=== PATIENT | female | born 1995 | race Caucasian/White ===

== ENCOUNTER → 2020-04-07 | Outpatient (CLI) | payer BC ==
--- NOTE | 2020-04-07 15:04 | US ---
EXAMINATION TYPE: US pelvis complete transvag DATE OF EXAM: 04/07/2020 COMPARISON: NONE CLINICAL HISTORY: N93.9 Abnormal uterine bleeding. Medical induced x 1 month ago and still b leeding. TECHNIQUE: Transvaginal (TV) and Transabdominal (TA) . Transabdominal sonographic images of the pel vis were acquired. Transvaginal sonographic images were medically necessary to better assess the fol lowing anatomy: Endometrium Date of LMP: 02/24/2020, [id number] EXAM MEASUREMENTS: Uterus: 7.4 x 4.8 x 3.6 cm Endometrial Stripe: 0.7 cm Right Ovary: 3.3 x 2.4 x 1.7 cm 1. Uterus: Anteverted wnl 2. Endometrium: Appears hypervascular and slightly heterogenous. No prominent masses or lesions see n. 3. Right Ovary: wnl 4. Left Ovary: Obscured by overlying bowel gas 5. Bilateral Adnexa: wnl 6. Posterior cul-de-sac: free fluid visualized. As abdominal and transpelvic ultrasound showed no suspicious endometrial thickening but there is susp icious significant turbulent vascularity that extends from the endometrium into the adjacent myometri um. This is observed on both transvaginal and transabdominal imaging. Tiny amount of free fluid in pe lvic cul-de-sac towards end of study. Left ovary not clearly seen. Right ovary identified. No suspicious adnexal masses. IMPRESSION: As above. Consider acquired uterine AVM given patient's history. Advise endovascular inte rventional referral to further investigate with direct catheter angiogram and possibly treat. Ordering physician made aware of results shortly after exam was completed and reviewed with radiologi st by glass technologist.
== END | disposition home or self-care (01) ==
LOC: RADUSWWP 14:19
PROVIDERS: ATTEND Family Medicine
DX: N83.8 Other noninflammatory disorders of ovary, fallopian tube and broad ligament (principal); R93.89 Abnormal findings on diagnostic imaging of other specified body structures
CPT/HCPCS: 76830; 76856

== ENCOUNTER → 2020-04-17 | Outpatient (CLI) | payer BC | END | disposition home or self-care (01) | LOC: LABWHC1 08:12 | PROVIDERS: ATTEND Obstetrics & Gynecology | DX: N92.6 Irregular menstruation, unspecified (principal) | CPT/HCPCS: 36415; 84702 ==

== ENCOUNTER → 2020-05-01 | Outpatient (CLI) | payer BC | END | disposition home or self-care (01) | LOC: LABWHC1 07:49 | PROVIDERS: ATTEND Obstetrics & Gynecology | DX: O03.4 Incomplete spontaneous abortion without complication (principal); Z3A.00 Weeks of gestation of pregnancy not specified | CPT/HCPCS: 36415; 84702 ==

== ENCOUNTER 2021-03-12 16:58 | Emergency (ER) | payer BC ==
[2021-03-12 17:19] VITALS: TEMP 98.6
[2021-03-12] MEDS ORDERED: SODIUM CHLORIDE 0.9% 1,000 ML IV STA (17:33)
[2021-03-12] MEDS ORDERED: diphenhydrAMINE 50 MG/ML 1 ML VIAL IVP STA (17:35)
[2021-03-12] MEDS ORDERED: BENZTROPINE 2 MG/2 ML AMP IV STA (17:35)
--- NOTE | 2021-03-12 17:45 | ED ---
General Adult HPI - General Chief complaint: Recheck/Abnormal Lab/Rx Stated complaint: ticks Time Seen by Provider: 03/12/21 17:20 Source: patient, family, RN notes reviewed Mode of arrival: ambulatory Limitations: no limitations - History of Present Illness Initial comments: This is a pleasant 26-year-old female with history depression. Patient had her Lexapro increased from 20 mg to 30 mg on Monday. Patient subsequently developed a tremor and upper body spasm involving her neck and torso. Patient was seen at [facility] yesterday. Patient was given Benadryl and sent home. Patient subsequently had another visit and was given Cogentin. Patient saw her primary care physician today and it was deemed that the reaction may be related to an [id number] energy supplements with coenzyme Q 10 that she started on Monday. Later [facility] did stop her Lexapro, she's only been off this for one day however. She is denying any other illicit substances. No other new medications. No antipsychotics. No nausea medicines. Patient was also diagnosed with a urinary tract infection this morning at her doctor's office and was started on nitrofurantoin. However, patient has had no symptomology regarding avoiding irritation. No fever. No headache, no fever or chills, no changes in vision or hearing, no sore throat or difficulty with speech, no neck pain, no chest pain or shortness of breath, no abdominal pain, no nausea or vomiting, no changes in urination or bowel movements, no numbness or tingling, no extremity pain, no skin rashes or lesions. - Related Data Home Medications Medication Instructions Recorded Confirmed Baclofen [Lioresal] 10 mg PO TID 03/12/21 03/12/21 Escitalopram [Lexapro] 10 mg PO BID 03/12/21 03/12/21 Nitrofurantoin Monohyd/M-Cryst 100 mg PO Q12HR 03/12/21 03/12/21 [Macrobid] norgestimate-ethinyl estradioL 1 tab PO DAILY@199903/12/21 03/12/21 [Nymyo 0.25-0.035 mg (28) Tab] Previous Rx's Medication Instructions Recorded LORazepam [Ativan] 0.5 mg PO TID 3 Days #9 tab 03/12/21 Allergies Allergy/AdvReac Type Severity Reaction Status Date / Time shellfish derived [Shellfish] Allergy Rash/Hives Verified 03/12/21 18:28 Review of Systems ROS Statement: Those systems with pertinent positive or pertinent negative responses have been documented in the HPI. ROS Other: All systems not noted in ROS Statement are negative. Past Medical History Additional Past Medical History / Comment(s): covid x 2 History of Any Multi-Drug Resistant Organisms: None Reported Additional Past Surgical History / Comment(s): d&c Past Psychological History: Anxiety, Depression Smoking Status: Current every day smoker, Vaper Past Alcohol Use History: Rare Past Drug Use History: None Reported General Exam Limitations: no limitations General appearance: alert, in no apparent distress Head exam: Present: atraumatic, normocephalic, normal inspection Eye exam: Present: normal appearance, PERRL, EOMI. Absent: scleral icterus, conjunctival injection, periorbital swelling ENT exam: Present: normal exam, mucous membranes moist Neck exam: Present: normal inspection. Absent: tenderness, meningismus, lymphadenopathy Respiratory exam: Present: normal lung sounds bilaterally. Absent: respiratory distress, wheezes, rales, rhonchi, stridor Cardiovascular Exam: Present: regular rate, normal rhythm, normal heart sounds. Absent: systolic murmur, diastolic murmur, rubs, gallop, clicks GI/Abdominal exam: Present: soft, normal bowel sounds. Absent: distended, tenderness, guarding, rebound, rigid Extremities exam: Present: normal inspection, full ROM, normal capillary refill. Absent: tenderness, pedal edema, joint swelling, calf tenderness Back exam: Present: normal inspection Neurological exam: Present: alert, altered, oriented X3, CN II-XII intact, other (Patient has obvious spasmodic activity affecting her torso and neck area. This is consistent throughout the course of interview. Coming every few seconds. Neurologically intact otherwise.). Absent: normal gait, abnormal gait, motor sensory deficit, reflexes normal Psychiatric exam: Present: normal affect, normal mood Skin exam: Present: warm, dry, intact, normal color. Absent: rash Course Vital Signs 03/12/21 03/12/21 17:11 19:29 Temperature 98.6 F Pulse Rate 95 73 Respiratory 20 18 Rate Blood Pressure 110/75 110/82 O2 Sat by Pulse 99 99 Oximetry Medical Decision Making - Medical Decision Making Patient presents with myoclonic jerking involving the upper torso. Patient neurologically intact otherwise. No focal neurologic deficits.Patient remained lucid, alert and oriented 4 throughout the entire course of these movements. Patient has been seen at the other emergency department here in [facility]. Patient was also seen by her primary care physician this morning. Patient was started on baclofen. Patient was seen and assessed both by myself as well as the ED attending physician here today. We're going to treat the patient with a short course of Ativan 0.5 mg 3 times a day. Patient will be followed up with neurology. Patient given follow-up information for Dr. Jacques. Patient was told to return to the ER for any signs or symptoms worsen. Told to return immediately if any other problems arise. All questions answered. Treatment plan discussed. Patient in agreement ED attending physicians Dr. Stanton - Lab Data Result diagrams: 03/12/21 17:53 03/12/21 17:53 Lab Results 03/12/21 03/12/21 03/12/21 Range/Units 17:53 17:53 Unknown WBC 7.7 (3.8-10.6) k/uL RBC 4.67 (3.80-5.40) m/uL Hgb 13.9 (11.4-16.0) gm/dL Hct 42.3 (34.0-46.0) % MCV 90.5 (80.0-100.0) fL MCH 29.7 (25.0-35.0) pg MCHC 32.8 (31.0-37.0) g/dL RDW 12.8 (11.5-15.5) % Plt Count 214 (150-450) k/uL MPV 7.3 Neutrophils % 71 % Lymphocytes % 23 % Monocytes % 3 % Eosinophils % 2 % Basophils % 0 % Neutrophils # 5.4 (1.3-7.7) k/uL Lymphocytes # 1.8 (1.0-4.8) k/uL Monocytes # 0.3 (0-1.0) k/uL Eosinophils # 0.1 (0-0.7) k/uL Basophils # 0.0 (0-0.2) k/uL Sodium 137 (137-145) mmol/L Potassium 4.4 (3.5-5.1) mmol/L Chloride 108 H (98-107) mmol/L Carbon Dioxide 20 L (22-30) mmol/L Anion Gap 9 mmol/L BUN 10 (7-17) mg/dL Creatinine 0.79 (0.52-1.04) mg/dL Est GFR (CKD-EPI)AfAm >90 (>60 ml/min/1.73 sqM) Est GFR (CKD-EPI)NonAf >90 (>60 ml/min/1.73 sqM) Glucose 121 H (74-99) mg/dL Calcium 9.6 (8.4-10.2) mg/dL Total Bilirubin 1.3 (0.2-1.3) mg/dL AST 39 H (14-36) U/L ALT 29 (4-34) U/L Alkaline Phosphatase 34 L (38-126) U/L Total Protein 8.1 (6.3-8.2) g/dL Albumin 4.6 (3.5-5.0) g/dL Urine Color Yellow Urine Appearance Clear (Clear) Urine pH 5.0 (5.0-8.0) Ur Specific [place] 1.010 (1.001-1.035) Urine Protein Negative (Negative) Urine Glucose (UA) Negative (Negative) Urine Ketones Negative (Negative) Urine Blood Negative (Negative) Urine Nitrite Negative (Negative) Urine Bilirubin Negative (Negative) Urine Urobilinogen <2.0 (<2.0) mg/dL Ur Leukocyte Esterase Negative (Negative) Urine HCG, Qual (Not Detectd) Urine Opiates Screen (NotDetected) Ur Oxycodone Screen (NotDetected) Urine Methadone Screen (NotDetected) Ur Propoxyphene Screen (NotDetected) Ur Barbiturates Screen (NotDetected) U Tricyclic Antidepress (NotDetected) Ur Phencyclidine Scrn (NotDetected) Ur Amphetamines Screen (NotDetected) U Methamphetamines Scrn (NotDetected) U Benzodiazepines Scrn (NotDetected) Urine Cocaine Screen (NotDetected) U Marijuana (THC) Screen (NotDetected) 03/12/21 03/12/21 Range/Units Unknown Unknown WBC (3.8-10.6) k/uL RBC (3.80-5.40) m/uL Hgb (11.4-16.0) gm/dL Hct (34.0-46.0) % MCV (80.0-100.0) fL MCH (25.0-35.0) pg MCHC (31.0-37.0) g/dL RDW (11.5-15.5) % Plt Count (150-450) k/uL MPV Neutrophils % % Lymphocytes % % Monocytes % % Eosinophils % % Basophils % % Neutrophils # (1.3-7.7) k/uL Lymphocytes # (1.0-4.8) k/uL Monocytes # (0-1.0) k/uL Eosinophils # (0-0.7) k/uL Basophils # (0-0.2) k/uL Sodium (137-145) mmol/L Potassium (3.5-5.1) mmol/L Chloride (98-107) mmol/L Carbon Dioxide (22-30) mmol/L Anion Gap mmol/L BUN (7-17) mg/dL Creatinine (0.52-1.04) mg/dL Est GFR (CKD-EPI)AfAm (>60 ml/min/1.73 sqM) Est GFR (CKD-EPI)NonAf (>60 ml/min/1.73 sqM) Glucose (74-99) mg/dL Calcium (8.4-10.2) mg/dL Total Bilirubin (0.2-1.3) mg/dL AST (14-36) U/L ALT (4-34) U/L Alkaline Phosphatase (38-126) U/L Total Protein (6.3-8.2) g/dL Albumin (3.5-5.0) g/dL Urine Color Urine Appearance (Clear) Urine pH (5.0-8.0) Ur Specific [place] (1.001-1.035) Urine Protein (Negative) Urine Glucose (UA) (Negative) Urine Ketones (Negative) Urine Blood (Negative) Urine Nitrite (Negative) Urine Bilirubin (Negative) Urine Urobilinogen (<2.0) mg/dL Ur Leukocyte Esterase (Negative) Urine HCG, Qual Not Detected (Not Detectd) Urine Opiates Screen Not Detected (NotDetected) Ur Oxycodone Screen Not Detected (NotDetected) Urine Methadone Screen Not Detected (NotDetected) Ur Propoxyphene Screen Not Detected (NotDetected) Ur Barbiturates Screen Not Detected (NotDetected) U Tricyclic Antidepress Not Detected (NotDetected) Ur Phencyclidine Scrn Not Detected (NotDetected) Ur Amphetamines Screen Not Detected (NotDetected) U Methamphetamines Scrn Not Detected (NotDetected) U Benzodiazepines Scrn Not Detected (NotDetected) Urine Cocaine Screen Not Detected (NotDetected) U Marijuana (THC) Screen Not Detected (NotDetected) Disposition Clinical Impression: Myoclonic jerking, Encounter for medication refill, Stress and adjustment reaction Disposition: HOME SELF-CARE Condition: Good Prescriptions: LORazepam [Ativan] 0.5 mg PO TID 3 Days #9 tab Is patient prescribed a controlled substance at d/c from ED?: No Referrals: Colton Bustillos MD [Primary Care Provider] - 1-2 days Dilshad Jacques DO [STAFF PHYSICIAN] - 1-2 days Time of Disposition: 19:36
[2021-03-12 17:55] LABS: Basophils % (A) 0 %; Eosinophils # (A) 0.1 k/uL (0-0.7); Eosinophils % (A) 2 %; HCT 42.3 % (34.0-46.0); HGB 13.9 gm/dL (11.4-16.0); Lymphocytes # (A) 1.8 k/uL (1.0-4.8); Lymphocytes % (A) 23 %; MCH 29.7 pg (25.0-35.0); MCHC 32.8 g/dL (31.0-37.0); MCV 90.5 fL (80.0-100.0); Mean Platelet Volume 7.3; Monocytes # (A) 0.3 k/uL (0-1.0); Monocytes % (A) 3 %; Neutrophils # (A) 5.4 k/uL (1.3-7.7); Neutrophils % (A) 71 %; Platelet Count 214 k/uL (150-450); RBC 4.67 m/uL (3.80-5.40); RDW 12.8 % (11.5-15.5); WBC 7.7 k/uL (3.8-10.6)
[2021-03-12 18:05] LABS: Appearance,Urine Clear (Clear); Bilirubin,Urine Negative (Negative); Blood,Urine Negative (Negative); Color,Urine Yellow; Glucose,Urine (UA) Negative (Negative); Ketones,Urine Negative (Negative); Leukocyte Esterase,Urine Negative (Negative); Nitrite,Urine Negative (Negative); Protein,Urine Negative (Negative); Urobilinogen,Urine <2.0 mg/dL (<2.0)
[2021-03-12 18:11] LABS: ALT 29 U/L (4-34); AST 39 U/L (14-36); African American GFR (CKD) >90 (>60 ml/min/1.73 sqM); Albumin 4.6 g/dL (3.5-5.0); Alkaline Phosphatase 34 U/L (38-126); Anion Gap 9 mmol/L; Blood Urea Nitrogen 10 mg/dL (7-17); Calcium 9.6 mg/dL (8.4-10.2); Carbon Dioxide 20 mmol/L (22-30); Chloride 108 mmol/L (98-107); Glucose 121 mg/dL (74-99); Non-African American GFR(CKD) >90 (>60 ml/min/1.73 sqM); Sodium 137 mmol/L (137-145); Total Bilirubin 1.3 mg/dL (0.2-1.3); Total Protein 8.1 g/dL (6.3-8.2)
[2021-03-12 18:15] LABS: Amphetamine Screen,Urine Not Detected (NotDetected); Barbiturate Screen,Urine Not Detected (NotDetected); Benzodiazepines Screen,Urine Not Detected (NotDetected); Cocaine Screen,Urine Not Detected (NotDetected); Methadone Screen, Urine Not Detected (NotDetected); Opiate Screen,Urine Not Detected (NotDetected); Oxycodone Screen, Urine Not Detected (NotDetected); Phencyclidine Screen,Urine Not Detected (NotDetected); Tricyclic Antidepressant,Urine Not Detected (NotDetected); Urn Cannabinoid Scrn Not Detected (NotDetected)
[2021-03-12 18:29] LABS: Potassium 4.4 mmol/L (3.5-5.1)
[2021-03-12] MEDS ORDERED: LORazepam 2 MG/ML INJ IV STA (19:05)
[2021-03-12 19:31] VITALS: BP 110/82; PULSE 73; RESP 18
== END 2021-03-12 20:10 | disposition home or self-care (01) ==
LOC: EC 16:58
DX: G25.3 Myoclonus (principal); F43.20 Adjustment disorder, unspecified; F17.290 Nicotine dependence, other tobacco product, uncomplicated; Z76.0 Encounter for issue of repeat prescription; Z20.822 Contact with and (suspected) exposure to COVID-19; Z86.16 Personal history of COVID-19; Z91.013 Allergy to seafood
CPT/HCPCS: 36415; 80053; 85025; 81003; 81025; 80306; 99284; 96374; 96375; 96361; J2060; J1200; J0515

== ENCOUNTER → 2021-06-30 | Outpatient (CLI) | payer BC ==
--- NOTE | 2021-06-30 15:11 | US ---
EXAMINATION TYPE: US pelvis complete transvag DATE OF EXAM: 06/30/2021 COMPARISON: US CLINICAL HISTORY: R10.2 PELVIC PAIN. Pelvic pain. Hx of D&C. . TECHNIQUE: Transabdominal (TA). Transabdominal sonographic images of the pelvis were acquired. Tra nsvaginal sonographic images were medically necessary to better assess the following anatomy: Left ov mary Date of LMP: 06/23/21 EXAM MEASUREMENTS: Uterus: 7.3 x 3.5 x 3.0 cm Endometrial Stripe: 0.63 cm Right Ovary: 2.3 x 1.4 x 1.5 cm Left Ovary: Not visualized 1. Uterus: Anteverted Cervix appears heterogeneous. Distinct mass not visualized after transvagina l imaging. 2. Endometrium: Measures 0.63 cm. Hyperechoic area seen in upper endo measuring 0.2 x 0.2 x 0.1 cm. Hypervascular area seen in endometrium and extending into the myometrium. 3. Right Ovary: Seen TA only. No abnormalities seen. 4. Left Ovary: Obscured by overlying bowel gas 5. Bilateral Adnexa: wnl 6. Posterior cul-de-sac: wnl IMPRESSION: 1. Some prominence of uterine cervix. Correlate with physical exam. Follow-up exam can be performed a s clinically warranted.
== END | disposition home or self-care (01) ==
LOC: RADUSWWP 12:56
PROVIDERS: ATTEND Obstetrics & Gynecology
DX: R10.2 Pelvic and perineal pain (principal)
CPT/HCPCS: 76830; 76856

== ENCOUNTER 2023-09-25 19:33 | Inpatient (IN) | payer BC | END 2023-09-26 12:01 | disposition home or self-care (01) | DRG 807 | LOC: 4FBP 19:33 | PROVIDERS: ADMIT Obstetrics & Gynecology; ATTEND Obstetrics & Gynecology | PROC: 10E0XZZ Delivery of Products of Conception, External Approach (ICD-10-PCS; principal; 2023-09-25) | PROC: 0KQM0ZZ Repair Perineum Muscle, Open Approach (ICD-10-PCS; 2023-09-25) | DX: O42.02 Full-term premature rupture of membranes, onset of labor within 24 hours of rupture (principal); Z37.0 Single live birth; O70.1 Second degree perineal laceration during delivery; Z3A.37 37 weeks gestation of pregnancy ==

== ENCOUNTER → 2024-02-08 | Outpatient (CLI) | payer BC ==
--- NOTE | 2024-02-09 16:41 | US ---
EXAMINATION TYPE: US gallbladder DATE OF EXAM: 02/08/2024 COMPARISON: NONE CLINICAL INDICATION: Female, 29 years old with history of R10.11 RIGHT UPPER QUADRANT PAIN; RUQ pain TECHNIQUE: Grayscale and color Doppler imaging of the right upper quadrant was performed. FINDINGS: EXAM MEASUREMENTS: Liver Length: 11.9x4.0x5.4 cm Gallbladder Wall: 0.2 cm CBD: 0.4 cm Right Kidney: 11.9x4.0x5.4 cm INTERMEDIATE MANAGER NOTES: Pancreas: Tail obscured by overlying bowel gas Liver: wnl Gallbladder: large stone measuring up to 2.7 cm Evidence for sonographic Fuentes's sign: No CBD: wnl Right Kidney: wnl exam limited by bowel gas IMPRESSION: 1. Cholelithiasis. 2. No evidence for acute process. [facility], , 02/09/2024 4:39 PM
== END | disposition home or self-care (01) ==
LOC: RADUSWWP 07:00
PROVIDERS: ATTEND Family Medicine
DX: K80.20 Calculus of gallbladder without cholecystitis without obstruction (principal)
CPT/HCPCS: 76705

== ENCOUNTER → 2024-08-05 | Outpatient (CLI) | payer OTHER ==
--- NOTE | 2024-08-05 23:14 | US ---
EXAMINATION TYPE: Transabdominal DATE OF EXAM: 08/05/2024 1:35 PM COMPARISON: None relevant CLINICAL INDICATION: Female, 29 years old with history of O36.80X0 W INCONCLUSIVE VIA BILITY,; Unknown LMP, 10 month old - not . Positive test TECHNIQUE: Transabdominal (TA) with grayscale and color Doppler imaging including first trimester pre gnancy. FINDINGS: EXAM MEASUREMENTS: GESTATIONAL AGE / DATING Physician Established: Not yet established Dates by LMP: LMP unknown Dates by First Scan: No previous this is first scan Dates by Current Scan for: (9 weeks/4 days) EDC: 03/06/2025 MATERNAL ANATOMY Uterus: 11.1 x 6.2 x 7.3 cm Right Ovary: 3.9 x 2.2 x 2.7 cm Left Ovary: 3.3 x 1.8 x 2.1 cm Post CDS / Adnexa: WNL Presence of free fluid: No Presence of corpus luteal cyst: No Presence of subchorionic bleed: Yes, 1.3 x 0.5 cm GESTATION / SURVEY CRL: 2.65 (9 weeks/4 days) Gestational Sac morphology: Normal Gestational Sac MSD: NA ( weeks/ days) Yolk Sac (normal less than 6mm): 3 mm Cardiac Activity/Heart Rate: 167 bpm Rhythm: Normal IUP: Viable IUP Nuchal Translucency 10-14wks (normal less than 3mm): 1 mm Age Appropriate Anatomy Cord Insertion: Too early to visualize Limbs: Visualized Calvarium: Visualized Date of LMP: Unknown Beta HcG (if available): Not available IMPRESSION: 1. Single intrauterine gestation estimated at 9 weeks 4 days gestation based on crown-rump length. Ca rdiac activity measures 167 bpm. 2. There may be a small subchorionic hemorrhage adjacent to the gestational sac. Follow up can be per formed. [facility], , 08/05/2024 11:12 PM
== END | disposition home or self-care (01) ==
LOC: RADUSWWP 13:17
PROVIDERS: ATTEND Obstetrics & Gynecology
DX: O36.80X0 Pregnancy with inconclusive fetal viability, not applicable or unspecified (principal); Z3A.09 9 weeks gestation of pregnancy
CPT/HCPCS: 76801

== ENCOUNTER 2024-08-21 08:44 | Emergency (ER) | payer OTHER ==
[2024-08-21 08:49] VITALS: RESP 20; TEMP 98.6
--- NOTE | 2024-08-21 09:08 | ED ---
General Adult HPI - General Chief complaint: Neuro Symptoms/Deficit Stated complaint: Possible seizure Time Seen by Provider: 08/21/24 08:56 Source: patient Mode of arrival: ambulatory Limitations: no limitations - History of Present Illness Initial comments: Dictation was produced using [employer] dictation software. please excuse any grammatical, word or spelling errors. Chief Complaint: 29-year-old female with dystonia History of Present Illness: Patient 29-year-old female takes antidepressant medications. She is allegedly 3 months . Patient was driving when all of a sudden she started to have dystonic reactions. She had a similar episode years ago after having had some of her antidepressant medications changed. Patient's been on antidepressant medications for the last 6 to 7 years. Denies any pain complaints. States that her arms do not feel too bad. The ROS documented in this emergency department record has been reviewed and confirmed by me. Those systems with pertinent positive or negative responses have been documented in the HPI. All other systems are other negative and/or noncontributory. - Related Data Home Medications Medication Instructions Recorded Confirmed Baclofen [Lioresal] 10 mg PO TID 03/12/21 03/12/21 Escitalopram [Lexapro] 10 mg PO BID 03/12/21 03/12/21 Nitrofurantoin Monohyd/M-Cryst 100 mg PO Q12HR 03/12/21 03/12/21 [Macrobid] norgestimate-ethinyl estradioL 1 tab PO DAILY@199903/12/21 03/12/21 [Nymyo 0.25-0.035 mg (28) Tab] Previous Rx's Medication Instructions Recorded LORazepam [Ativan] 0.5 mg PO TID 3 Days #9 tab 03/12/21 Allergies Allergy/AdvReac Type Severity Reaction Status Date / Time shellfish derived [Shellfish] Allergy Rash/Hives Verified 03/12/21 18:28 Review of Systems ROS Statement: Those systems with pertinent positive or pertinent negative responses have been documented in the HPI. ROS Other: All systems not noted in ROS Statement are negative. Past Medical History Additional Past Medical History / Comment(s): covid x 2 ,serotonin issues History of Any Multi-Drug Resistant Organisms: None Reported Additional Past Surgical History / Comment(s): d&c Past Psychological History: Anxiety, Depression Smoking Status: Current every day smoker, Vaper Past Alcohol Use History: Rare Past Drug Use History: None Reported General Exam - General Exam Comments Initial Comments: PHYSICAL EXAM: General Impression: Alert and oriented x3, uncontrolled neck face and head movements HEENT: Normocephalic atraumatic, extra-ocular movements intact, pupils equal and reactive to light bilaterally, mucous membranes moist. Cardiovascular: Heart regular rate and rhythm Chest: Able to complete full sentences, no retractions, no tachypnea Abdomen: abdomen soft, non-tender, non-distended, no organomegaly Musculoskeletal: Pulses present and equal in all extremities, no peripheral edema Motor: no focal deficits noted Neurological: CN II-XII grossly intact, no focal motor or sensory deficits noted Skin: Intact with no visualized rashes Psych: Normal affect and mood Limitations: no limitations Course Vital Signs 08/21/24 08:45 Temperature 98.6 F Pulse Rate 100 Respiratory 20 Rate Blood Pressure 123/84 O2 Sat by Pulse 97 Oximetry Medical Decision Making - Medical Decision Making Was pt. sent in by a medical professional or institution (, PA, ENGINE BUILDUP MECHANIC, urgent care, hospital, or [facility]...) When possible be specific @ -No Did you speak to anyone other than the patient for history (EMS, parent, family, police, friend...)? What history was obtained from this source @ -No Did you review nursing and triage notes (agree or disagree)? Why? @ -I reviewed and agree with nursing and triage notes Were old charts reviewed (outside hosp., previous admission, EMS record, old EKG, old radiological studies, urgent care reports/EKG's, [facility] records)? Report findings @ -No old charts were reviewed Differential Diagnosis (chest pain, altered mental status, abdominal pain women, abdominal pain men, vaginal bleeding, musculoskeletal, weakness, fever, dyspne a, syncope, headache, dizziness, GI bleed, back pain, seizure, CVA, palpatations, mental health)? @ -Differential Musculoskeletal: Muscular strain, contusion, ligament sprain, fracture, arthritis, septic arthritis, bursitis, cellulitis, muscle spasm, nerve compression, DVT, arterial occlusion, herpes zoster, electrolyte abnormality, tumor.... This is not meant to be in all inclusive list EKG interpreted by me (3pts min.). @ -None done X-rays interpreted by me (1pt min.). @ -None done CT interpreted by me (1pt min.). @ -None done U/S interpreted by me (1pt. min.). @ -None done What testing was considered but not performed or refused? (CT, X-rays, U/S, labs)? Why? @ -None What meds were considered but not given or refused? Why? @ -None Was smoking cessation discussed for >3mins.? @ -No Were there social determinants of health that impacted care today? How? (Homelessness, low income, unemployed, alcoholism, drug addiction, transportation, low edu. Level, literacy, decrease access to med. care, detention, rehab)? @ -No Was there de-escalation of care discussed even if they declined (Discuss DNR or withdrawal of care, Hospice)? DNR status @ -No What co-morbidities impacted this encounter? (DM, HTN, Smoking, COPD, CAD, Cancer, CVA, ARF, Chemo, Hep., AIDS, mental health diagnosis, sleep apnea, morbid obesity)? @ -Depression Was patient admitted / discharged? Hospital course, mention meds given and route, prescriptions, significant lab abnormalities, going to OR and other pert inent info. @ -29-year-old female presents to the emergency department acute dystonic reaction. Vital signs stable. Laboratory evaluation is unremarkable. Patient symptoms resolved after benztropine. Discharged told to follow-up with whoever prescribes her psychiatric medications for further care. Did you discuss the management of the patient with other professionals (professionals i.e. , PA, ENGINE BUILDUP MECHANIC, lab, RT, psych nurse, geriatric social work professor, pediatric physical therapist, teacher, police liaison officer, renal case manager)? Give summary @ -No Was critical care preformed (if so, how long)? @ -No Undiagnosed new problem with uncertain prognosis? @ -No Drug Therapy requiring intensive monitoring for toxicity (Heparin, Nitro, In sulin, Cardizem)? @ -No Were any procedures done? @ -No Diagnosis/symptom? Acute, or Chronic, or Acute on Chronic? Uncomplicated (without systemic symptoms) or Complicated (systemic symptoms)? @ -Acute dystonia Side effects of treatment? @ -No Exacerbation, Progression, or Severe Exacerbation? @ -No Poses a threat to life or bodily function? How? (Chest pain, [place], [place], pneumonia, PE, COPD, DKA, ARF, appy, cholecystitis, CVA, Diverticulitis, Homicidal, Suicidal, threat to staff... and all critical care pts) @ -No - Lab Data Result diagrams: 08/21/24 09:37 08/21/24 09:37 Lab Results 08/21/24 08/21/24 Range/Units 09:37 09:37 WBC 7.71 (4.50-10.00) 10*3/uL RBC 4.44 (4.10-5.20) 10*6/uL Hgb 13.0 (12.0-15.0) g/dL Hct 37.8 (37.2-46.3) % MCV 85.1 (80.0-97.0) fL MCH 29.3 (27.0-32.0) pg MCHC 34.4 (32.0-37.0) g/dL Plt Count 244 (140-440) 10*3/uL MPV 9.4 L (9.5-12.2) fL Immature Gran % (Auto) 0.3 % Neutrophils % 73.0 % Lymphocytes % 21.3 % Monocytes % 4.2 % Eosinophils % 0.8 % Basophils % 0.4 % Immature Gran # 0.02 (0.00-0.04) 10*3/uL Neutrophils # 5.64 (1.80-7.70) 10*3/uL Lymphocytes # 1.64 (0.90-5.00) 10*3/uL Monocytes # 0.32 (0.20-1.00) 10*3/uL Eosinophils # 0.06 (0.04-0.35) 10*3/uL Basophils # 0.03 (0.00-0.10) 10*3/uL Sodium 137 (137-145) mmol/L Potassium 3.8 (3.5-5.1) mmol/L Chloride 105 (98-107) mmol/L Carbon Dioxide 22 (22-30) mmol/L Anion Gap 10 mmol/L BUN 8 (7-17) mg/dL Creatinine 0.52 (0.52-1.04) mg/dL Est GFR (CKD-EPI)AfAm >90 (>60 ml/min/1.73 sqM) Est GFR (CKD-EPI)NonAf >90 (>60 ml/min/1.73 sqM) Glucose 91 (74-99) mg/dL Calcium 9.3 (8.4-10.2) mg/dL Disposition Clinical Impression: Acute dystonic reaction due to drugs Disposition: HOME SELF-CARE Condition: Fair Instructions (If sedation given, give patient instructions): Extrapyramidal Symptoms (ED) Is patient prescribed a controlled substance at d/c from ED?: No Referrals: Nonstaff,Physician [Primary Care Provider] - 1-2 days Time of Disposition: 10:30
[2024-08-21] MEDS: BENZTROPINE 2 MG/2 ML AMP IV STA (09:20)
[2024-08-21 09:50] LABS: Basophils # (A) 0.03 10*3/uL (0.00-0.10); Basophils % (A) 0.4 %; Eosinophils # (A) 0.06 10*3/uL (0.04-0.35); Eosinophils % (A) 0.8 %; HCT 37.8 % (37.2-46.3); HGB 13.0 g/dL (12.0-15.0); Lymphocytes # (A) 1.64 10*3/uL (0.90-5.00); Lymphocytes % (A) 21.3 %; MCH 29.3 pg (27.0-32.0); MCHC 34.4 g/dL (32.0-37.0); MCV 85.1 fL (80.0-97.0); Monocytes # (A) 0.32 10*3/uL (0.20-1.00); Monocytes % (A) 4.2 %; Neutrophils # (A) 5.64 10*3/uL (1.80-7.70); Neutrophils % (A) 73.0 %; Platelet Count 244 10*3/uL (140-440); RBC 4.44 10*6/uL (4.10-5.20); RDW 13.6 % (11.5-14.5); WBC 7.71 10*3/uL (4.50-10.00)
[2024-08-21 10:00] LABS: African American GFR (CKD) >90 (>60 ml/min/1.73 sqM); Anion Gap 10 mmol/L; Blood Urea Nitrogen 8 mg/dL (7-17); Calcium 9.3 mg/dL (8.4-10.2); Carbon Dioxide 22 mmol/L (22-30); Chloride 105 mmol/L (98-107); Glucose 91 mg/dL (74-99); Non-African American GFR(CKD) >90 (>60 ml/min/1.73 sqM); Potassium 3.8 mmol/L (3.5-5.1); Sodium 137 mmol/L (137-145)
[2024-08-21 10:50] VITALS: BP 97/60; PULSE 87
== END 2024-08-21 10:50 | disposition home or self-care (01) ==
LOC: EC 08:44
DX: O99.320 Drug use complicating pregnancy, unspecified trimester (principal); G24.02 Drug induced acute dystonia; F32.A Depression, unspecified; O99.330 Smoking (tobacco) complicating pregnancy, unspecified trimester; O99.340 Other mental disorders complicating pregnancy, unspecified trimester; F17.290 Nicotine dependence, other tobacco product, uncomplicated; Z3A.00 Weeks of gestation of pregnancy not specified; Z91.013 Allergy to seafood; T43.205A Adverse effect of unspecified antidepressants, initial encounter
CPT/HCPCS: 99284 ×2; 96374 ×2; 36415; 80048; 85025; J0515